=== PATIENT | female | born 1990 | race Two or more races ===

== ENCOUNTER 2017-03-31 16:33 | Emergency (ER) | payer OTHER ==
[~2017-03-31] VITALS: Ht 160 cm; Wt 87.5 kg
[2017-03-31 17:03] VITALS: BP 110/55
[2017-03-31] MEDS ORDERED: LIDOCAINE 2%/EPI 1:100,000 20 ML VIAL. ONE (17:55)
[2017-03-31] MEDS ORDERED: LIDOCAINE 2%/EPI 1:100,000 20 ML VIAL. IJ ONE (18:00)
--- NOTE | 2017-03-31 18:14 | PHYS DOC ---
General Chief Complaint: HEMORRHOIDS Stated Complaint: HEMORRHOIDS Time Seen by MD: 16:38 Source: patient Exam Limitations: no limitations Problems: History of Present Illness Initial Comments Patient is a 26-year-old female who comes to the ED complaining of rectal pain. Patient speaks Tuval[place] as a second language, her significant other does translate some information that she apparently cannot understand. Overall she has functional Tuvaluan speaking capacity. Patient states that for the past 5 days she's had worsening pain at the rectum. An annoyance initially, for the past 24 hours she says it's been severe and throbbing. Pain is worse with bowel movements and exertion, her last bowel movement was today described as normal. She relays a history of mild constipation but actually feels this condition is resultant from a [address] as they just relocated to this area from [place]. She denies blood in her stools fever chills sweats or myalgias and has no chronic medical issues other than mild chronic constipation. Timing/Duration: 1 week, getting worse Severity: severe Modifying Factors: worse with movement Associated Symptoms: other Past Medical History Medical History: other (constipation) Surgical History: other ( section) Social History Smoker: non-smoker Alcohol: none Drugs: none Review of Systems Constitutional: denies chills, denies diaphoresis, denies fever, denies malaise Respiratory: denies cough, denies shortness of breath Cardiovascular: denies chest pain, denies palpitations Gastrointestinal: see HPI, denies abdominal pain, denies diarrhea, denies nausea, denies vomiting Genitourinary: denies dysuria, denies frequency, denies hematuria Musculoskeletal: denies back pain, denies joint swelling, denies neck pain Psychiatric/Neurological: denies headache, denies numbness, denies paresthesia Physical Exam General Appearance: mild distress, obese Ear, Nose, Throat: hearing grossly normal, normal ENT inspection Neck: non-tender, supple Respiratory: normal breath sounds, no respiratory distress Gastrointestinal: non tender, soft Rectal: hemorrhoids (a 1.5 cm thrombosed hemorrhoid noted at the 6 o'clock position with exquisite tenderness to palpation there is no active bleeding. No evidence of erythema or other changes.) Back: no CVA tenderness, no vertebral tenderness Extremities: non-tender, normal inspection Neurologic/Psychiatric: rehabilitation physician II-XII nml as tested, no motor/sensory deficits, alert, oriented x 3 Skin: normal color, warm/dry Incision and Drainage Incision and Drainage : Site: thrombosed hemorrhoid at the anterior anus Blade Size: 11 I & D Procedure: betadine prep Progress Informed consent obtained, 2 mL of 2% lidocaine with epinephrine infused with adequate analgesia. An 11 blade used for 0.5 cm incision after which thrombosed and pooled blood expressed. Swelling reduced patient tolerated the procedure well there were no complications estimated blood loss minimal. Wound care instructions were discussed in detail see departure instructions. Departure Time of Disposition: 18:13 Disposition: 01 HOME, SELF-CARE Diagnosis: thrombosed external hemorrhoid Condition: IMPROVED Patient Instructions: Hemorrhoidectomy, Care After Additional Instructions: Rest, no strenuous activity. Hot sitz baths 15 minutes 3 times daily and after each bowel movement. High fiber (30 g per day) diet. 10-12 glasses of water daily. Onyw-esp-yytzqtm stool softeners to avoid constipation. No straining or heavy lifting no straining on the toilet until cleared by your doctor. [id number] ibuprofen for baseline discomfort. Wear a pad until bleeding resolves. Prescription: [facility] [place] 5 mg quantity 15 Follow-up with her doctor in 5-7 days for recheck. Return to the ED with new or changing symptoms. SUDARSHAN RODRIGUEZ DO Mar 31, 2017 18:14
[2017-03-31] MEDS ORDERED: HYDROcodone/APAP 5/325MG 1 TAB TABLET PO ONE (18:15)
[2017-03-31] MEDS ORDERED: HYDROcodone/APAP 5/325MG 1 TAB TABLET ONE (18:31)
== END 2017-03-31 18:35 | disposition home or self-care (01) ==
LOC: ER 16:33
DX: K64.5 Perianal venous thrombosis (principal); Z98.890 Other specified postprocedural states
CPT/HCPCS: 99284-25

== ENCOUNTER → 2017-05-11 | Outpatient (CLI) | payer OTHER ==
--- NOTE | 2017-05-11 14:16 | RAD ---
Renal ultrasound 05/11/2017 Clinical history: Right flank pain. Technique: A real-time ultrasound examination of both kidneys and the urinary bladder was performed. Multiple images were obtained. Findings: Both kidneys are within normal limits in size and echogenicity. The right kidney measures 11 cm in length. The left kidney measures 12.1 cm in length. No focal abnormality of either kidney is seen. There is no evidence of hydronephrosis. No renal calculus is noted. Increased echogenicity of the liver parenchyma is seen consistent with mild fatty infiltration. Images through the pelvis demonstrate the urinary bladder distended with urine. Echogenic debris is seen within the urinary bladder. Impression: 1. No abnormality of either kidney is seen. 2. Fatty infiltration of the liver. 3. Small amount of debris is seen within the urinary bladder.
== END | disposition home or self-care (01) ==
LOC: US 10:52
PROVIDERS: ATTEND Nurse Practitioner Family
DX: K76.0 Fatty (change of) liver, not elsewhere classified (principal)
CPT/HCPCS: 76770

== ENCOUNTER → 2017-05-24 | Outpatient (CLI) | payer OTHER ==
[2017-05-24 11:06] LABS: ALBUMIN 3.6 g/dL (3.4-5.0); DIRECT BILIRUBIN 0.1 mg/dL (0.0-0.2); TOTAL BILIRUBIN 0.3 mg/dL (0.2-1.0); TOTAL PROTEIN 7.7 g/dL (6.4-8.2)
--- NOTE | 2017-05-24 13:35 | RAD ---
Lumbar spine plain films Indication: Pain since childbirth 2 months ago Technique: 3 views of the lumbar spine Comparison: None Findings: The lumbar spine is in normal anatomic alignment. No vertebral body height loss or intervertebral disc space narrowing. No evidence of degenerative disc disease. Bilateral SI joints are within normal limits. Note made of IUD. Impression: Unremarkable lumbar spine plain films. MTDD
== END | disposition home or self-care (01) ==
LOC: DXRAD 10:02
PROVIDERS: ATTEND Nurse Practitioner Family
DX: M54.5 Low back pain (principal)
CPT/HCPCS: 36415; 72100; 80061; 80076

== ENCOUNTER 2017-05-31 11:15 | Emergency (ER) | payer OTHER ==
[2017-05-31 11:20] VITALS: BP 120/62
[2017-05-31] MEDS ORDERED: NALOXONE 0.4 MG/ML VIAL. IV ONE (11:45)
[2017-05-31 11:51] LABS: BASO % 0 % (0-3); EOS # 0.2 x10^3/uL (0.0-0.7); EOS % 2 % (0-3); HEMATOCRIT 41.7 % (36.0-47.0); HEMOGLOBIN 13.5 g/dL (12.0-15.5); LYMPH # 1.6 x10^3/uL (1.0-4.8); LYMPH % 16 % (24-48); MEAN CORPUSCULAR HEMOGLOBIN 28 pg (25-35); MEAN CORPUSCULAR HGB CONC 32 g/dL (31-37); MEAN CORPUSCULAR VOLUME 86 fL (79-100); MONO # 0.6 x10^3/uL (0.0-1.1); MONO % 6 % (0-9); NEUT # 7.7 x10^3uL (1.8-7.7); NEUT % 76 % (31-73); PLATELET COUNT 301 x10^3/uL (140-400); RED BLOOD COUNT 4.84 x10^6/uL (3.50-5.40); RED CELL DISTRIBUTION WIDTH 15.3 % (11.5-14.5); WHITE BLOOD COUNT 10.1 x10^3/uL (4.0-11.0)
[2017-05-31 12:03] LABS: ALBUMIN 3.7 g/dL (3.4-5.0); ALBUMIN/GLOBULIN RATIO 0.9 (1.0-1.7); CALCIUM 9.3 mg/dL (8.5-10.1); CREATININE 0.8 mg/dL (0.6-1.0); GFR 88.1; POTASSIUM 4.3 mmol/L (3.5-5.1); TOTAL BILIRUBIN 0.4 mg/dL (0.2-1.0)
[2017-05-31 12:04] LABS: ACETAMIN < 2.0 mcg/mL (10-30); ETHANOL < 10 mg/dL (0-10)
[2017-05-31 12:25] LABS: BARBITURATES NEG (NEG); BENZODIAZEPINES NEG (NEG); CANNABINOIDS NEG (NEG); COCAINE NEG (NEG); METHADONE NEG (NEG); OPIATES NEG (NEG); PHENCYCLIDINE NEG (NEG)
[2017-05-31 12:26] LABS: AMPHETAMINE/METHAMPHETAMINE NEG (NEG)
[2017-05-31] MEDS ORDERED: traMADol 50 MG TABLET PO ONE (12:30)
[2017-05-31] MEDS ORDERED: KETOROLAC 30 MG/ML VIAL. IV ONE (12:30)
--- NOTE | 2017-05-31 17:23 | ED.ADGEN ---
Past History Past Medical History: Constipation Past Surgical History: , Other Alcohol Use: None Additional Alcohol Information: UNKNOWN Drug Use: None Adult General Chief Complaint Chief Complaint Altered mental status, drug overdose HPI HPI Patient is a 26-year-old female who presents with acute drug overdose. Patient took #3, 5/325 mg Percocets 2 hours prior to ED arrival. Patient family members state patient became unresponsive brought patient in by private vehicle. No report of apnea or loss of pulse. On ED arrival, patient has pinpoint pupils in the car is unresponsive his breathing and has good pulse. Patient brought into treatment room immediately. An IV was established and the patient was given Narcan. Upon regaining consciousness, patient states she underwent an anal fistula surgery [address] Starkey at [facility] and took more pain medication more than prescribed due to poorly controlled pain. Patient denies any other coingestants, drugs or alcohol. Patient has follow-up appointment with Dr. Starkey in 2 weeks Review of Systems Review of Systems ROS as per HPI. Current Medications Current Medications Current Medications Medications (Trade) Dose Ordered Sig/Terence Start Time Stop Time Status Last Admin Dose Admin Ketorolac Tromethamine (Toradol) 30 mg 1X ONCE 05/31/17 12:30 05/31/17 12:31 DC 05/31/17 12:39 30 MG Naloxone HCl (Narcan) 0.4 mg 1X ONCE 05/31/17 11:45 05/31/17 11:46 DC 05/31/17 11:46 0.4 MG Tramadol HCl (Ultram) 100 mg 1X ONCE 05/31/17 12:30 05/31/17 12:31 DC 05/31/17 12:37 100 MG Allergies Allergies Allergies Coded Allergies Type Severity Reaction Last Updated Verified No Known Drug Allergies 05/31/17 No Physical Exam Physical Exam Constitutional: Unresponsive. [] HENT: Normocephalic, atraumatic, bilateral external ears normal, nose normal. [] Eyes: PERRLA, EOMI, conjunctiva normal, no discharge. [] Neck: Normal range of motion, no tenderness, supple, no stridor. [] Cardiovascular:Heart rate regular rhythm, no murmur. [] Lungs & Thorax: Bilateral breath sounds clear to auscultation [] Abdomen: Bowel sounds normal, soft, no tenderness.[] Skin: Warm, dry, no erythema, no rash. [] Back: No tenderness. [] Extremities: No tenderness. [] Current Patient Data Vital Signs Vital Signs Date Time Temp Pulse Resp B/P (MAP) Pulse Ox O2 Delivery O2 Flow Rate FiO2 05/31/17 12:37 16 05/31/17 11:20 98.1 66 98 Room Air Lab Results Laboratory Tests Test 05/31/17 11:35 05/31/17 11:59 White Blood Count 10.1 x10^3/uL (4.0-11.0) Red Blood Count 4.84 x10^6/uL (3.50-5.40) Hemoglobin 13.5 g/dL (12.0-15.5) Hematocrit 41.7 % (36.0-47.0) Mean Corpuscular Volume 86 fL (79-100) Mean Corpuscular Hemoglobin 28 pg (25-35) Mean Corpuscular Hemoglobin Concent 32 g/dL (31-37) Red Cell Distribution Width 15.3 % (11.5-14.5) H Platelet Count 301 x10^3/uL (140-400) Neutrophils (%) (Auto) 76 % (31-73) H Lymphocytes (%) (Auto) 16 % (24-48) L Monocytes (%) (Auto) 6 % (0-9) Eosinophils (%) (Auto) 2 % (0-3) Basophils (%) (Auto) 0 % (0-3) Neutrophils # (Auto) 7.7 x10^3uL (1.8-7.7) Lymphocytes # (Auto) 1.6 x10^3/uL (1.0-4.8) Monocytes # (Auto) 0.6 x10^3/uL (0.0-1.1) Eosinophils # (Auto) 0.2 x10^3/uL (0.0-0.7) Basophils # (Auto) 0.0 x10^3/uL (0.0-0.2) Sodium Level 139 mmol/L (136-145) Potassium Level 4.3 mmol/L (3.5-5.1) Chloride Level 104 mmol/L (98-107) Carbon Dioxide Level 25 mmol/L (21-32) Anion Gap 10 (6-14) Blood Urea Nitrogen 10 mg/dL (7-20) Creatinine 0.8 mg/dL (0.6-1.0) Estimated GFR (Cockcroft-Gault) 88.1 BUN/Creatinine Ratio 13 (6-20) Glucose Level 118 mg/dL (70-99) H Calcium Level 9.3 mg/dL (8.5-10.1) Total Bilirubin 0.4 mg/dL (0.2-1.0) Aspartate Amino Transferase (AST) 21 U/L (15-37) Alanine Aminotransferase (ALT) 34 U/L (14-59) Alkaline Phosphatase 106 U/L (46-116) Total Protein 8.0 g/dL (6.4-8.2) Albumin 3.7 g/dL (3.4-5.0) Albumin/Globulin Ratio 0.9 (1.0-1.7) L Acetaminophen Level < 2.0 mcg/mL (10-30) L Acetaminophen Last Dose Date 05/31/17 Acetaminophen Last Dose Time 0800 Ethyl Alcohol Level < 10 mg/dL (0-10) Urine Opiates Screen Neg (NEG) Urine Methadone Screen Neg (NEG) Urine Barbiturates Neg (NEG) Urine Phencyclidine Screen Neg (NEG) Urine Amphetamine/Methamphetamine Neg (NEG) Urine Benzodiazepines Screen Neg (NEG) Urine Cocaine Screen Neg (NEG) Urine Cannabinoids Screen Neg (NEG) Urine Ethyl Alcohol Neg (NEG) EKG EKG [] Radiology/Procedures Radiology/Procedures [] Course & Med Decision Making Course & Med Decision Making Pertinent Labs and Imaging studies reviewed. (See chart for details) [Patient given single dose of Narcan with immediate regain of consciousness. Patient history is pearly controlled pain did not intentionally overdose. On exam, the patient has a healing anal fistulotomy with serous drainage but without evidence of infection which is the cause of the patient's paint. She denies fever, abdominal pain, or bleeding. Tramadol and toradol given for pain relief in the ED. Case reviewed with Dr. Hatfield who recommended early follow up with Dr. Starkey. Patent admonished to take pain medication as prescribed. A prescription for tramadol was provided for breakthrough pain as needed. Patient verbalizes understanding agreement with discharge plan. ] Final Impression Final Impression [1. Accidental drug overdose 2. Post-operative pain Problems: Dragon Disclaimer Dragon Disclaimer This electronic medical record was generated, in whole or in part, using a voice recognition dictation system. RITA SAUER DO May 31, 2017 17:23
== END 2017-05-31 12:50 | disposition home or self-care (01) ==
LOC: ER 11:15
DX: T50.991A Poisoning by other drugs, medicaments and biological substances, accidental (unintentional), initial encounter (principal); G89.18 Other acute postprocedural pain; Y92.89 Other specified places as the place of occurrence of the external cause
CPT/HCPCS: 36415; 80053; 80307; 85025; 96374; 96375; 99284; G0480; J1885; J2310; G0479

== ENCOUNTER 2018-11-09 12:30 | Emergency (ER) | payer OTHER ==
[2018-11-09 12:46] VITALS: BP 122/68
[2018-11-09] MEDS ORDERED: KETOROLAC 60 MG/2 ML VIAL. IM ONE ×2 (12:49→13:15)
--- NOTE | 2018-11-09 13:19 | RAD ---
PQRS Compliance statement: One or more of the following individualized dose reduction techniques were utilized for this examination: 1. Automated exposure control. 2. Adjustment of the mA and/or kV according to patient size. 3. Use of iterative reconstruction technique. Indication:FALL TODAY TECHNIQUE: CT head without IV contrast COMPARISON:None FINDINGS: No pathologic extra-axial or intra-axial fluid collection. The ventricles and basal cisterns are within normal limits. No acute intracranial bleed. No focal loss of santos-white sensation. Orbits are within normal limits. No large scalp hematoma. No acute calvarial fracture. Visualized paranasal sinuses and mastoid air cells are clear. IMPRESSION: No acute intracranial process. Indication:FALL TODAY TECHNIQUE: CT of the cervical spine without IV contrast with multiplanar reformats. COMPARISON:None FINDINGS: Cervical spine is in normal anatomic alignment. Atlantoaxial joint interval is preserved. No compression deformity. Facet joints are in normal anatomic alignment. No acute fractures. Noncontrast appearance of the neck soft tissue is within normal limits. Clear lung apices. IMPRESSION: No acute cervical spine fracture. Electronically signed by: Jordan Benz DO (11/09/2018 1:14 PM) [id number]
--- NOTE | 2018-11-09 13:25 | RAD ---
Three-view lumbar spine and three-view sacrum HISTORY: Patient fell today COMPARISON: Prior lumbar spine of May 24, 2017 images are available but no report. Three-view lumbar spine Vertebral body height, disc spaces and alignment appear intact. No bone destruction identified. Small pelvic calcifications likely phleboliths. 3 view sacrum No evidence of acute fracture. No bone destruction. The sacroiliac joints appear to be intact. IMPRESSION: No evidence of acute graphic abnormality. Electronically signed by: Siva Mcclendon MD (11/09/2018 1:21 PM) [facility]
--- NOTE | 2018-11-09 13:25 | RAD ---
Three-view lumbar spine and three-view sacrum HISTORY: Patient fell today COMPARISON: Prior lumbar spine of May 24, 2017 images are available but no report. Three-view lumbar spine Vertebral body height, disc spaces and alignment appear intact. No bone destruction identified. Small pelvic calcifications likely phleboliths. 3 view sacrum No evidence of acute fracture. No bone destruction. The sacroiliac joints appear to be intact. IMPRESSION: No evidence of acute graphic abnormality. Electronically signed by: Siva Mcclendon MD (11/09/2018 1:21 PM) [facility]
[2018-11-09] MEDS ORDERED: NAPR-683 PO (14:07)
[2018-11-09] MEDS ORDERED: CYCL-331 PO (14:07)
--- NOTE | 2018-11-09 14:07 | PHYS DOC ---
Past History Past Medical History: No Pertinent History Past Surgical History: Other Alcohol Use: None Drug Use: None Adult General Chief Complaint Chief Complaint: MECHANICAL FALL HPI HPI Patient is a 28 year old female who brought in by EMS because of a fall at parking lot and complaining of pain in her head and lower back. Patient states she is slipped on ice and had a fall. Patient denies loss of consciousness or focal neuro deficit, nausea and vomiting, . Patient rated her pain 10 over 10. Patient had c-collar placed by EMS. Review of Systems Review of Systems Constitutional: Denies fever or chills [] Eyes: Denies change in visual acuity, redness, or eye pain [] HENT: Denies nasal congestion or sore throat [] Respiratory: Denies cough or shortness of breath [] Cardiovascular: No additional information not addressed in HPI [] GI: Denies abdominal pain, nausea, vomiting, bloody stools or diarrhea [] : Denies dysuria or hematuria [] Musculoskeletal: Reports back pain Integument: Denies rash or skin lesions [] Neurologic: Reports headache, denies focal weakness or sensory changes [] Endocrine: Denies polyuria or polydipsia [] All other systems were reviewed and found to be within normal limits, except as documented in this note. Current Medications Current Medications Current Medications Medications (Trade) Dose Ordered Sig/[facility] Start Time Stop Time Status Last Admin Dose Admin Ketorolac Tromethamine (Toradol Im) 60 mg 1X ONCE 11/09/18 13:15 11/09/18 13:16 DC 11/09/18 13:06 60 MG Allergies Allergies Allergies Coded Allergies Type Severity Reaction Last Updated Verified No Known Drug Allergies 05/31/17 No Physical Exam Physical Exam Constitutional: Well developed, well nourished, mild acute distress, non-toxic appearance. [] HENT: Normocephalic, atraumatic Eyes: PERRLA, EOMI, conjunctiva normal, no discharge. [] Neck: Immobilized by c-collar Cardiovascular:Heart rate regular rhythm, no murmur [] Lungs & Thorax: Bilateral breath sounds clear to auscultation [] Abdomen: Bowel sounds normal, soft, no tenderness, no masses, no pulsatile masses. [] Skin: Warm, dry, no erythema, no rash. [] Back: No tenderness, no CVA tenderness. [] Extremities: No tenderness, no cyanosis, no clubbing, ROM intact, no edema. [] Neurologic: Alert and oriented X 3, normal motor function, normal sensory function, no focal deficits noted. [] Psychologic: Affect anxious, judgement normal, mood normal. [] Current Patient Data Vital Signs Vital Signs Date Time Temp Pulse Resp B/P (MAP) Pulse Ox O2 Delivery O2 Flow Rate FiO2 11/09/18 12:46 98.1 65 18 98 Room Air EKG EKG [] Radiology/Procedures Radiology/Procedures [address] [id number] IMAGING REPORT Signed PATIENT: PENELOPE NEAL V ACCOUNT: [id number] : 1990 LOCATION: ER AGE: 28 SEX: F EXAM STATUS: REG ER ORD. PHYSICIAN: ERIK NOLAN MD REASON: fall PROCEDURE: CT HEAD AND CERVICAL SPINE WO RS Compliance statement: One or more of the following individualized dose reduction techniques were utilized for this examination: 1. Automated exposure control. 2. Adjustment of the mA and/or kV according to patient size. 3. Use of iterative reconstruction technique. Indication:FALL TODAY TECHNIQUE: CT head without IV contrast COMPARISON:None FINDINGS: No pathologic extra-axial or intra-axial fluid collection. The ventricles and basal cisterns are within normal limits. No acute intracranial bleed. No focal loss of santos-white sensation. Orbits are within normal limits. No large scalp hematoma. No acute calvarial fracture. Visualized paranasal sinuses and mastoid air cells are clear. IMPRESSION: No acute intracranial process. Indication:FALL TODAY TECHNIQUE: CT of the cervical spine without IV contrast with multiplanar reformats. COMPARISON:None FINDINGS: Cervical spine is in normal anatomic alignment. Atlantoaxial joint interval is preserved. No compression deformity. Facet joints are in normal anatomic alignment. No acute fractures. Noncontrast appearance of the neck soft tissue is within normal limits. Clear lung apices. IMPRESSION: No acute cervical spine fracture. Electronically signed by: Jordan Benz DO (11/09/2018 1:14 PM) [id number] DICTATED AND SIGNED BY: JORDAN BENZ DO DATE: 11/09/18 1310 CC: SIMBA EMANUEL APRN; ERIK NOLAN MD ~ [address] [id number] IMAGING REPORT Signed PATIENT: PENELOPE NEAL V ACCOUNT: [id number] : 1990 LOCATION: ER AGE: 28 SEX: F EXAM STATUS: REG ER ORD. PHYSICIAN: ERIK NOLAN MD REASON: fall PROCEDURE: LUMBAR SPINE 2-3V Three-view lumbar spine and three-view sacrum HISTORY: Patient fell today COMPARISON: Prior lumbar spine of May 24, 2017 images are available but no report. Three-view lumbar spine Vertebral body height, disc spaces and alignment appear intact. No bone destruction identified. Small pelvic calcifications likely phleboliths. 3 view sacrum No evidence of acute fracture. No bone destruction. The sacroiliac joints appear to be intact. IMPRESSION: No evidence of acute graphic abnormality. Electronically signed by: Siva Mcclendon MD (11/09/2018 1:21 PM) [facility] DICTATED AND SIGNED BY: SIVA MCCLENDON MD DATE: 11/09/18 [id number] CC: SIMBA EMANUEL APRN; ERIK NOLAN MD ~ [address] [address] IMAGING REPORT Signed PATIENT: PENELOPE NEAL V ACCOUNT: [id number] : 1990 LOCATION: ER AGE: 28 SEX: F EXAM STATUS: REG ER ORD. PHYSICIAN: ERIK NOLAN MD REASON: fall PROCEDURE: SACRUM & COCCYX 3V Three-view lumbar spine and three-view sacrum HISTORY: Patient fell today COMPARISON: Prior lumbar spine of May 24, 2017 images are available but no report. Three-view lumbar spine Vertebral body height, disc spaces and alignment appear intact. No bone destruction identified. Small pelvic calcifications likely phleboliths. 3 view sacrum No evidence of acute fracture. No bone destruction. The sacroiliac joints appear to be intact. IMPRESSION: No evidence of acute graphic abnormality. Electronically signed by: Siva Mcclendon MD (11/09/2018 1:21 PM) [facility] DICTATED AND SIGNED BY: SIVA MCCLENDON MD DATE: 11/09/18 6075 CC: SIMBA EMANUEL APRN; ERIK NOLAN MD ~ Course & Med Decision Making Course & Med Decision Making Pertinent Imaging studies reviewed. (See chart for details) Evaluation of patient in ER showed 28-year-old female patient in by ambulance because of a fall and injury to her back. Patient was very anxious. Patient treated with Toradol and felt better. CT head and cervical spine and lumbar and sacral and coccyx x-ray was unremarkable. Patient ambulated without problem. Plan discharge patient home with diagnosis of fall and lumbosacral strain. Dragon Disclaimer Dragon Disclaimer This electronic medical record was generated, in whole or in part, using a voice recognition dictation system. Departure Departure: Impression: Primary Impression: Acute lumbosacral myofascial strain Additional Impressions: Head injury Fall from slipping on ice Disposition: 01 HOME, SELF-CARE (at 1403) Condition: IMPROVED Referrals: SIMBA EMANUEL APRN (PCP) Patient Instructions: Head Injury, Adult, Lumbosacral Strain Additional Instructions: Drink plenty of liquids Follow-up with your primary care physician in 3-5 days Return to ER if not getting better Apply ice on the affected area Scripts Naproxen (NAPROSYN) 500 Mg Tablet 500 MG PO BID for pain, #20 TAB Prov: ERIK NOLAN MD 11/09/18 Cyclobenzaprine Hcl (CYCLOBENZAPRINE HCL) 10 Mg Tablet 1 TAB PO TID for pain, #20 TAB Prov: ERIK NOLAN MD 11/09/18 Problem Qualifiers ERIK NOLAN MD Nov 09, 2018 14:07
== END 2018-11-09 14:10 | disposition home or self-care (01) ==
LOC: ER 12:30
DX: S39.012A Strain of muscle, fascia and tendon of lower back, initial encounter (principal); S09.90XA Unspecified injury of head, initial encounter; W00.0XXA Fall on same level due to ice and snow, initial encounter; Y93.89 Activity, other specified; Y92.481 Parking lot as the place of occurrence of the external cause; Y99.8 Other external cause status
CPT/HCPCS: 70450; 72100; 72125; 72220; 96372; 99284; J1885

== ENCOUNTER 2018-11-24 19:01 | Emergency (ER) | payer OTHER ==
[~2018-11-24] VITALS: Ht 160 cm; Wt 94.9 kg
[~2018-11-24 19:01] MED LIST: CYCL-331 PO; NAPR-683 PO
--- NOTE | 2018-11-24 19:11 | ED.ADGEN ---
Past History Past Medical History: No Pertinent History, Bronchitis Past Surgical History: Other Alcohol Use: None Drug Use: None Adult General Chief Complaint Chief Complaint ".. I fell on my tailbone yesterday.. I slipped on the ice....and it still hurts to move... or go to bathroom.. and I ve probably got what my got... virus.. and bronchitis.. they ended up putting him on breathing thing and antibiotics. " HPI HPI Patient is a 28 year old female dependent from [place] who presents with above hx and complaints of fall with tailbone injury, bronchitis, non- productive cough, fever, chills, pharyngitis, malaise, arthralgia and myalgia. Hx. of prior surgical repair of cysts at base of spine. She denies any problems with defecation or urination. Patient has been ambulatory. Injury initially occurred approximately 2 days ago. Has been exposed to her recently has a upper respiratory infection and a diagnosis of pneumonia and isn' t currently on a course of antibiotics. No recent travel. Patient normally healthy. Review of Systems Review of Systems Constitutional: Denies fever or chills [] Eyes: Denies change in visual acuity, redness, or eye pain [] HENT: Complaints of nasal congestion and sore throat [] Respiratory: Complains of cough and wheezing Cardiovascular: No additional information not addressed in HPI [] GI: Denies abdominal pain, nausea, vomiting, bloody stools or diarrhea [] : Denies dysuria or hematuria [] Musculoskeletal: Complaints of tailbone pain after fall Integument: Denies rash or skin lesions [] Neurologic: Denies headache, focal weakness or sensory changes [] Endocrine: Denies polyuria or polydipsia [] All other systems were reviewed and found to be within normal limits, except as documented in this note. Family History Family History Noncontributory Current Medications Current Medications Current Medications Medications (Trade) Dose Ordered Sig/Terence Start Time Stop Time Status Last Admin Dose Admin Albuterol Sulfate (Ventolin Hfa Inhaler) 2 puff 1X ONCE 11/24/18 19:30 11/24/18 19:31 DC 11/24/18 19:54 2 PUFF Azithromycin (Zithromax) 500 mg 1X ONCE 11/24/18 19:30 2/21/19 19:31 DC 11/24/18 19:53 500 MG Prednisone (Prednisone) 50 mg 1X ONCE 11/24/18 19:30 11/24/18 19:31 DC 11/24/18 19:53 50 MG Allergies Allergies Allergies Coded Allergies Type Severity Reaction Last Updated Verified No Known Drug Allergies 05/31/17 No Physical Exam Physical Exam Constitutional: Moderately acute distress, non-toxic appearance. [] HENT: Normocephalic, atraumatic, bilateral external ears TMs have fluid behind TMs, no marked erythema,, oropharynx moist,nasal drainage and injected pharynx, no oral exudates, nose swollen turbinates and clear rhinorrhea. Eyes: PERRLA, EOMI, conjunctiva normal, no discharge. [] Neck: Normal range of motion, no tenderness, supple, no stridor. [] Cardiovascular:Heart rate regular rhythm, no murmur [] Lungs & Thorax: Bilateral breath sounds equal apex with scattered wheezing on auscultation [] Abdomen: Bowel sounds normal, soft, no tenderness, no masses, no pulsatile masses. Obese. Patient does have old surgical repair in the upper sacral area midline. Rectal exam shows no protrusion of tailbone into the rectal cavity. No pain at the tip of tailbone. Pain appears to be localized higher then the protruding tailbone area. No loss detected. Skin: Warm, dry, no erythema, no rash. [] Back: No tenderness, no CVA tenderness. [] Extremities: No tenderness, no cyanosis, no clubbing, ROM intact, no edema. [] Neurologic: Alert and oriented X 3, normal motor function, normal sensory function, no focal deficits noted. [] Psychologic: Affect inches, judgement normal, mood normal. [] Current Patient Data Vital Signs Vital Signs Date Time Temp Pulse Resp B/P (MAP) Pulse Ox O2 Delivery O2 Flow Rate FiO2 11/24/18 21:02 85 18 110/56 (74) 99 Room Air 11/24/18 19:29 98.3 Lab Results Laboratory Tests Test 11/24/18 19:20 11/24/18 19:43 Urine Collection Type Unknown Urine Color Yellow Urine Clarity Clear Urine pH 5.5 Urine Specific [place] 1.020 Urine Protein Neg (NEG-TRACE) Urine Glucose (UA) Neg mg/dL (NEG) Urine Ketones (Stick) Neg mg/dL (NEG) Urine Blood Trace (NEG) Urine Nitrite Neg (NEG) Urine Bilirubin Neg (NEG) Urine Urobilinogen Dipstick 0.2 mg/dL (0.2 mg/dL) Urine Leukocyte Esterase Neg (NEG) Urine RBC Rare /HPF (0-2) Urine WBC 1-4 /HPF (0-4) Urine Squamous Epithelial Cells Mod /LPF Urine Bacteria Few /HPF (0-FEW) Urine Opiates Screen Neg (NEG) Urine Methadone Screen Neg (NEG) Urine Barbiturates Neg (NEG) Urine Phencyclidine Screen Neg (NEG) Urine Amphetamine/Methamphetamine Neg (NEG) Urine Benzodiazepines Screen Neg (NEG) Urine Cocaine Screen Neg (NEG) Urine Cannabinoids Screen Neg (NEG) Urine Ethyl Alcohol Neg (NEG) Influenza Type A (Rapid) Negative (NEGATIVE) Influenza Type B (Rapid) Negative (NEGATIVE) Group A Streptococcus Rapid Negative (NEGATIVE) POC Urine HCG, Qualitative hcg negative (Negative) EKG EKG [] Radiology/Procedures Radiology/Procedures My interpretation of pelvic film shows no obvious fracture dislocation.[] Course & Med Decision Making Course & Med Decision Making Pertinent Labs and Imaging studies reviewed. (See chart for details). Patient use ice packs as needed for the next several days. Patient to keep stool soft. Patient take Tylenol and ibuprofen for discomfort. Patient take his Zithromax 250 mg daily for 5 days. Patient take prednisone 50 mg daily for 5 days. Patient uses MDI 2 puffs 4 times a day. Patient follow-up primary care. Patient return if any concerns. [] Final Impression Final Impression 1. Bronchitis 2. Fall- Tail bone contusion[] 3. Upper respiratory infection Dragon Disclaimer Dragon Disclaimer This electronic medical record was generated, in whole or in part, using a voice recognition dictation system. Dragon Disclaimer This chart was dictated in whole or in part using Voice Recognition software in a busy, high-work load, and often noisy Emergency Department environment. It may contain unintended and wholly unrecognized errors or omissions. Discharge Summary Visit Information Final Diagnosis Problems Medical Problems: (1) Bronchitis Status: Acute (2) Fall Status: Acute Brief Hospital Course Allergies Allergies Coded Allergies Type Severity Reaction Last Updated Verified No Known Drug Allergies 05/31/17 No Vital Signs Vital Signs Date Time Temp Pulse Resp B/P (MAP) Pulse Ox O2 Delivery O2 Flow Rate FiO2 11/24/18 21:02 85 18 110/56 (74) 99 Room Air 11/24/18 19:29 98.3 Lab Results Laboratory Tests Test 11/24/18 19:20 11/24/18 19:43 Urine Collection Type Unknown Urine Color Yellow Urine Clarity Clear Urine pH 5.5 Urine Specific [place] 1.020 Urine Protein Neg (NEG-TRACE) Urine Glucose (UA) Neg mg/dL (NEG) Urine Ketones (Stick) Neg mg/dL (NEG) Urine Blood Trace (NEG) Urine Nitrite Neg (NEG) Urine Bilirubin Neg (NEG) Urine Urobilinogen Dipstick 0.2 mg/dL (0.2 mg/dL) Urine Leukocyte Esterase Neg (NEG) Urine RBC Rare /HPF (0-2) Urine WBC 1-4 /HPF (0-4) Urine Squamous Epithelial Cells Mod /LPF Urine Bacteria Few /HPF (0-FEW) Urine Opiates Screen Neg (NEG) Urine Methadone Screen Neg (NEG) Urine Barbiturates Neg (NEG) Urine Phencyclidine Screen Neg (NEG) Urine Amphetamine/Methamphetamine Neg (NEG) Urine Benzodiazepines Screen Neg (NEG) Urine Cocaine Screen Neg (NEG) Urine Cannabinoids Screen Neg (NEG) Urine Ethyl Alcohol Neg (NEG) Influenza Type A (Rapid) Negative (NEGATIVE) Influenza Type B (Rapid) Negative (NEGATIVE) Group A Streptococcus Rapid Negative (NEGATIVE) Bedside Urine HCG, Qualitative hcg negative (Negative) Brief Hospital Course Ms. Villa is a 28 old female who presented with upper respiratory infection, bronchitis, and tailbone contusion. Discharge Information Condition at Discharge: Improved, Stable Disposition/Orders: D/C to Home Dischare Medications Current Medications Prednisone (Prednisone) 50 mg 1X ONCE PO Last administered on 11/24/18at 19:53 ; Admin Dose 50 MG; Start 11/24/18 at 19:30; Stop 11/24/18 at 19:31; Status DC Albuterol Sulfate (Ventolin Hfa Inhaler) 2 puff 1X ONCE INH Last administered on 11/24/18at 19:54; Admin Dose 2 PUFF; Start 11/24/18 at 19:30; Stop 11/24/18 at 19:31; Status DC Azithromycin (Zithromax) 500 mg 1X ONCE PO Last administered on 11/24/18at 19: 53; Admin Dose 500 MG; Start 11/24/18 at 19:30; Stop 11/24/18 at 19:31; Status DC Active Scripts Active Benadryl (Diphenhydramine Hcl) 25 Mg Capsule 50 Mg PO QIDPRN PRN Milk Of Magnesia (Magnesium Hydroxide) 2,400 Mg/10 Ml Oral.susp 2,400 Mg PO DAILY IF TAKING PAIN Acetaminophen 500 Mg Tablet 1,000 Mg PO QIDPRN PRN Hydrocodone-Ibuprofen 7.5-200 (Hydrocodone/Ibuprofen) 1 Each Tablet 1 Tab PO PRN Q6HRS PRN Zithromax (Azithromycin) 250 Mg Tablet 250 Mg PO DAILY 5 Days Prednisone 50 Mg Tablet 50 Mg PO DAILY 5 Days Naprosyn (Naproxen) 500 Mg Tablet 500 Mg PO BID Cyclobenzaprine Hcl 10 Mg Tablet 1 Tab PO TID DEXTER MEZA MD Nov 24, 2018 19:11
[2018-11-24] MEDS ORDERED: ALBUTEROL SULFATE 8GM INHALER. INH ONE (19:30)
[2018-11-24] MEDS ORDERED: predniSONE 10 MG TABLET PO ONE (19:30)
[2018-11-24] MEDS ORDERED: AZITHROMYCIN 250 MG TABLET. PO ONE (19:30)
[2018-11-24] MEDS ORDERED: ACET500T68 PO (19:31)
[2018-11-24] MEDS ORDERED: MAGN2400 PO (19:31)
[2018-11-24] MEDS ORDERED: PRED50TA PO (19:31)
[2018-11-24] MEDS ORDERED: AZIT250T PO (19:31)
[2018-11-24] MEDS ORDERED: HYDR-1179 PO (19:31)
[2018-11-24] MEDS ORDERED: DIPH25CA58 PO (19:32)
[2018-11-24 20:15] LABS: AMPHETAMINE/METHAMPHETAMINE NEG (NEG); BARBITURATES NEG (NEG); BENZODIAZEPINES NEG (NEG); CANNABINOIDS NEG (NEG); COCAINE NEG (NEG); METHADONE NEG (NEG); OPIATES NEG (NEG); PHENCYCLIDINE NEG (NEG)
[2018-11-24 20:16] LABS: INFLUENZA A PATIENT NEGATIVE (NEGATIVE); INFLUENZA B PATIENT NEGATIVE (NEGATIVE)
[2018-11-24 20:17] LABS: BACTERIA,URINE FEW /HPF (0-FEW); BILIRUBIN,URINE NEG (NEG); CLARITY,URINE CLEAR; COLOR,URINE YELLOW; GLUCOSE,URINE NEG (NEG); NITRITE,URINE NEG (NEG); RBC,URINE RARE /HPF (0-2); SQUAMOUS EPITHELIAL CELL,UR MOD /LPF; UROBILINOGEN,URINE 0.2 mg/dL (0.2 mg/dL)
[2018-11-24 21:02] VITALS: BP 110/56
--- NOTE | 2018-11-24 22:59 | RAD ---
PELVIS History: fell on tailbone, pain Comparison: Sacrum coccyx radiographs 11/09/2018 Findings: AP view of the pelvis is submitted. Sacral arcuate lines and sacroiliac joints are maintained. No acute osseous abnormality is identified. Impression: 1. No acute osseous abnormality is identified by radiograph. Electronically signed by: Yang Rdz MD (11/24/2018 10:55 PM) [id number]
== END 2018-11-24 21:04 | disposition home or self-care (01) ==
LOC: ER 19:01
DX: S30.0XXA Contusion of lower back and pelvis, initial encounter (principal); J06.9 Acute upper respiratory infection, unspecified; J40 Bronchitis, not specified as acute or chronic; W00.0XXA Fall on same level due to ice and snow, initial encounter; Y93.89 Activity, other specified; Y92.89 Other specified places as the place of occurrence of the external cause; Y99.8 Other external cause status
CPT/HCPCS: 36415; 72170; 80307; 81001; 81025; 87070; 87804; 87880; 94640; 99284; J0456; J7512; J7613

== ENCOUNTER 2019-04-30 22:38 | Emergency (ER) | payer OTHER ==
[~2019-04-30] VITALS: Ht 160 cm; Wt 94.9 kg
[~2019-04-30 22:38] MED LIST changes: +ACET500T68 PO; +AZIT250T PO; +DIPH25CA58 PO; +HYDR-1179 PO; +MAGN2400 PO; +PRED50TA PO
--- NOTE | 2019-04-30 22:43 | ED.ADGEN ---
Past History Past Medical History: No Pertinent History, Bronchitis Past Surgical History: No Surgical History Alcohol Use: None Drug Use: None Adult General Chief Complaint Chief Complaint ".. I have severe pain.. here... upper Rt and epigastric.. into my chest. ..".. " Everything started after eating hot dogs, hamburgers.. and several mixed drinks [place].. ".. " About 1 pm.. yesterday.. .its just never gone away...". :" it hurts clear up into my throat..." HPI HPI Patient is a 28 year old female who presents with above hx and complaints right upper quadrant and epigastric abdomen pain. Patient also having sternal pain and neck pain. Patient describing reflux into her throat. Patient states symptoms started after picnic at the [employer] yesterday and eating hot dogs and hamburgers with mixed drinks. Pain has never resolved. Patient denies any prior history of gallbladder disease. No history of cardiac problems. No history of black or tarry stools. No history of bad food. No history of travel. Denies immunosuppression. There is no family history called for colitis . Strong family hx for gallbladder disease , mother at age 20, sister at age 30. . Patient normally healthy. No history of blood clots or coagulopathy with family members or herself. There is some radiation of pain to right shoulder and back. No history of trauma. Pt. has been Gavid 1, Term 1 by C section. Has had problems with adenopathy, cellulitis and abscesses in axillary and groin ( hidradenitis suppurative) Review of Systems Review of Systems Constitutional: Denies fever or chills [] Eyes: Denies change in visual acuity, redness, or eye pain [] HENT: Denies nasal congestion or sore throat [] Respiratory: Denies cough or shortness of breath [] Cardiovascular: No additional information not addressed in HPI [] GI: Denies abdominal pain, nausea, vomiting, bloody stools or diarrhea [] : Denies dysuria or hematuria [] Musculoskeletal: Denies back pain or joint pain [] Integument: Denies rash or skin lesions [] Neurologic: Denies headache, focal weakness or sensory changes [] Endocrine: Denies polyuria or polydipsia [] All other systems were reviewed and found to be within normal limits, except as documented in this note. Family History Family History Mother issues of cardiac problems age 60, diabetes. Gallstones with family-, sister and mother at her age. Current Medications Current Medications Current Medications Medications (Trade) Dose Ordered Sig/Terence Start Time Stop Time Status Last Admin Dose Admin Acetaminophen (Tylenol) 1,000 mg 1X ONCE 05/01/19 02:30 05/01/19 02:31 UNV 05/01/19 02:38 1,000 MG Aspirin (Children'S Aspirin) 324 mg 1X ONCE 04/30/19 23:00 04/30/19 23:01 DC 04/30/19 23:10 324 MG Ceftriaxone Sodium 1 gm/ Sodium Chloride 50 ml @ 100 mls/hr 1X ONCE 05/01/19 02:30 05/01/19 02:59 UNV 05/01/19 02:38 100 MLS/HR Ceftriaxone Sodium (Rocephin) 1 gm STK-MED ONCE 05/01/19 02:32 05/01/19 02:33 DC Info (Do NOT chart on this entry -- for MONITORING) 1 each PRN DAILY PRN 04/30/19 23:55 05/02/19 23:54 Iohexol (Omnipaque 240 Mg/ml) 30 ml 1X ONCE 04/30/19 23:55 04/30/19 23:56 DC 05/01/19 01:33 30 ML Iohexol (Omnipaque 300 Mg/ml) 75 ml 1X ONCE 04/30/19 23:55 04/30/19 23:56 DC 05/01/19 01:34 75 ML Ketorolac Tromethamine (Toradol 30mg Vial) 30 mg 1X ONCE 05/01/19 02:30 05/01/19 02:31 UNV 05/01/19 02:38 30 MG Lactated Ringer's 1,000 ml @ 1,000 mls/hr Q1H 04/30/19 23:00 04/30/19 23:59 DC 04/30/19 23:11 1,000 MLS/HR Magnesium Hydroxide (Milk Of Magnesia) 2,400 mg 1X ONCE 04/30/19 23:15 04/30/19 23:48 DC 04/30/19 23:10 2,400 MG Sodium Chloride 50 ml @ As Directed STK-MED ONCE 05/01/19 02:34 05/01/19 02:35 DC Sucralfate (Carafate) 1 gm 1X ONCE 05/01/19 02:30 05/01/19 02:31 UNV 05/01/19 02:38 1 GM See nursing for home meds Allergies Allergies Allergies Coded Allergies Type Severity Reaction Last Updated Verified No Known Drug Allergies 05/31/17 No Physical Exam Physical Exam Constitutional: in moderately acute acute distress, non-toxic appearance. [] HENT: Normocephalic, atraumatic, bilateral external ears normal, oropharynx moist, no oral exudates, nose normal. [] Eyes: PERRLA, EOMI, conjunctiva normal, no discharge. [] Neck: Normal range of motion, no tenderness, supple, no stridor. [] Cardiovascular:Heart rate regular rhythm, no murmur [] Lungs & Thorax: Bilateral breath sounds equal apexes on auscultation [] Abdomen: Bowel sounds normal, soft, right upper quadrant and epigastric tenderness, liver edge., no pulsatile masses. [] Rebound to right upper quadrant and epigastric area. Patient declines rectal exam this time. Old surgery scar- Skin: Warm, dry, no erythema, no rash. [] Back: No tenderness, no CVA tenderness. [] Extremities: No tenderness, no cyanosis, no clubbing, ROM intact, no edema. [] No psoas sign. No cording noted. Scars and groin and axillary Neurologic: Alert and oriented X 3, normal motor function, normal sensory fu nction, no focal deficits noted. [] Psychologic: Affect anxious, judgement normal, mood normal. [] Current Patient Data Vital Signs Vital Signs Date Time Temp Pulse Resp B/P (MAP) Pulse Ox O2 Delivery O2 Flow Rate FiO2 05/01/19 02:44 64 18 116/59 (78) 99 Room Air 04/30/19 22:38 99.3 Lab Results Laboratory Tests Test 04/30/19 22:55 04/30/19 23:00 05/01/19 02:10 White Blood Count 11.1 x10^3/uL (4.0-11.0) H Red Blood Count 4.49 x10^6/uL (3.50-5.40) Hemoglobin 13.6 g/dL (12.0-15.5) Hematocrit 41.2 % (36.0-47.0) Mean Corpuscular Volume 92 fL (79-100) Mean Corpuscular Hemoglobin 30 pg (25-35) Mean Corpuscular Hemoglobin Concent 33 g/dL (31-37) Red Cell Distribution Width 13.2 % (11.5-14.5) Platelet Count 294 x10^3/uL (140-400) Neutrophils (%) (Auto) 63 % (31-73) Lymphocytes (%) (Auto) 27 % (24-48) Monocytes (%) (Auto) 6 % (0-9) Eosinophils (%) (Auto) 4 % (0-3) H Basophils (%) (Auto) 1 % (0-3) Neutrophils # (Auto) 6.9 x10^3uL (1.8-7.7) Lymphocytes # (Auto) 2.9 x10^3/uL (1.0-4.8) Monocytes # (Auto) 0.7 x10^3/uL (0.0-1.1) Eosinophils # (Auto) 0.4 x10^3/uL (0.0-0.7) Basophils # (Auto) 0.1 x10^3/uL (0.0-0.2) Prothrombin Time 9.7 SEC (9.4-11.4) Prothrombin Time INR 0.9 (0.9-1.1) PTT 23 SEC (23-33) D-Dimer (Rajni) 0.51 mg/L (0.00-0.50) H Sodium Level 139 mmol/L (136-145) Potassium Level 3.5 mmol/L (3.5-5.1) Chloride Level 103 mmol/L (98-107) Carbon Dioxide Level 27 mmol/L (21-32) Anion Gap 9 (6-14) Blood Urea Nitrogen 7 mg/dL (7-20) Creatinine 0.7 mg/dL (0.6-1.0) Estimated GFR (Cockcroft-Gault) 101.1 Glucose Level 142 mg/dL (70-99) H Calcium Level 8.9 mg/dL (8.5-10.1) Magnesium Level 1.8 mg/dL (1.8-2.4) Total Bilirubin 0.2 mg/dL (0.2-1.0) Direct Bilirubin 0.1 mg/dL (0.0-0.2) Aspartate Amino Transferase (AST) 70 U/L (15-37) H Alanine Aminotransferase (ALT) 100 U/L (14-59) H Alkaline Phosphatase 75 U/L (46-116) Creatine Kinase 39 U/L (26-192) Troponin I Quantitative < 0.017 ng/mL (0-0.055) < 0.017 ng/mL (0-0.055) FD-Qky-W-Type Natriuretic Peptide 25 pg/mL (0-124) Total Protein 7.0 g/dL (6.4-8.2) Albumin 3.3 g/dL (3.4-5.0) L Amylase Level 51 U/L (25-115) Lipase 160 U/L (73-393) Serum Test, Qualitative Negative (NEG) Urine Collection Type Unknown Urine Color Straw Urine Clarity Clear Urine pH 6.5 Urine Specific [place] 1.010 Urine Protein Neg (NEG-TRACE) Urine Glucose (UA) Neg mg/dL (NEG) Urine Ketones (Stick) Neg mg/dL (NEG) Urine Blood Neg (NEG) Urine Nitrite Neg (NEG) Urine Bilirubin Neg (NEG) Urine Urobilinogen Dipstick 0.2 mg/dL (0.2 mg/dL) Urine Leukocyte Esterase Neg (NEG) Urine RBC Occ /HPF (0-2) Urine WBC Occ /HPF (0-4) Urine Squamous Epithelial Cells Mod /LPF Urine Bacteria Few /HPF (0-FEW) Urine Opiates Screen Neg (NEG) Urine Methadone Screen Neg (NEG) Urine Barbiturates Neg (NEG) Urine Phencyclidine Screen Neg (NEG) Urine Amphetamine/Methamphetamine Neg (NEG) Urine Benzodiazepines Screen Neg (NEG) Urine Cocaine Screen Neg (NEG) Urine Cannabinoids Screen Neg (NEG) Urine Ethyl Alcohol Neg (NEG) EKG EKG I interpretation EKG shows sinus rhythm at 69 bpm. There are no findings acute STEMI with contralateral changes. There is movement artifact in lead 1 and 2 Radiology/Procedures Radiology/Procedures My interpretation of chest x-ray daily had shows no acute cardiopulmonary findings. No free air in the diaphragm. Abdomen portion shows a nonspecific bowel gas pattern.[] There is stool in the colon.[address] [address] IMAGING REPORT Signed PATIENT: PENELOPE VILLA V ACCOUNT: [id number] : 1990 LOCATION: ER AGE: 28 SEX: F EXAM STATUS: REG ER ORD. PHYSICIAN: DEXTER MEZA MD REASON: Omni 300,75ml IV.Omni 240,30ml PO.RUQ abd pain,epigastric pain PROCEDURE: CT ABD PELV W/ORAL&IV CONTRAST EXAM: CT Abdomen and Pelvis with IV contrast CLINICAL HISTORY: Right upper quadrant abdominal pain, epigastric pain. COMPARISON: none TECHNIQUE: Helical CT of the abdomen and pelvis was performed following the administration of intravenous contrast. Axial, coronal and sagittal reformatted images were generated. PQRS compliance statement - One or more of the following individualized dose reduction techniques were utilized for this study: 1. Automated exposure control 2. Adjustment of the mA and/or kV according to patient size 3. Use of iterative reconstruction technique FINDINGS: Lower chest: Lung bases are clear Abdomen and Pelvis: Diffuse hepatic hypoattenuation may be seen with hepatic steatosis. Focal fatty sparing at the gallbladder fossa and falciform ligament. Liver measures 24.4 cm in length. Gallbladder is normal. No biliary ductal dilatation. Spleen is unremarkable. Adrenal glands are normal. Pancreas is unremarkable. Symmetric nephrograms. 2 mm right interpolar renal calculus. No hydronephrosis or hydroureter. Bladder wall thickening with trace associated fat infiltration may be seen with cystitis. No small or large bowel dilatation. No evidence for bowel obstruction. Appendix is normal. No abdominal or pelvic lymphadenopathy. Prominent right lower quadrant mesenteric lymph nodes are seen. No abdominal pelvic ascites. Aorta is normal in caliber. Bones: Osseous structures are unremarkable. IMPRESSION: 1. Hepatic steatosis and hepatomegaly. 2. Right lower quadrant mesenteric lymph nodes are seen, nonspecific but may be seen with mesenteric adenitis. The appendix is normal. 3. Bladder wall thickening and mild fat infiltration is seen with cystitis. 4. Nonobstructing right interpolar renal calculus. No hydronephrosis or hydroureter. Electronically signed by: Matthew Shea MD (05/01/2019 2:03 AM) [facility] DICTATED AND SIGNED BY: MATTHEW SHEA MD DATE: 05/01/19 0203 CC: DEXTER MEZA MD; CESARIO CLARK MD ~ Course & Med Decision Making Course & Med Decision Making Pertinent Labs and Imaging studies reviewed. (See chart for details) Suspect hx consistent with biliary colic. Patient's stay on a clear fluid diet only for the next 2 days. Must allow bowel rest. No solid or milk products. Take Tylenol and ibuprofen for discomfort. Take Zantac and 50 mg twice day. Follow-up primary care. Consider EGD and ultrasound evaluate for biliary colic. Patient return if any concerns. Patient avoid high fat meals. [] Final Impression Final Impression 1. Chest pain 2. Epigastric and right upper quadrant abdomen pain[] 3. Mesenteric adenitis 4. Biliary colic 5. Gastritis 6. Elevated Glucsoe 142 7. Elevate AST, AlT 70/100 8. Very Mild elevation of D-dimer 0.56 9. Hx. of Hidradenitis Suppurativa Dragon Disclaimer Dragon Disclaimer This electronic medical record was generated, in whole or in part, using a voice recognition dictation system. Discharge Summary Visit Information Final Diagnosis Problems Medical Problems: (1) Acute mesenteric adenitis Status: Acute (2) Chest pain Status: Acute (3) Mesenteric adenitis Status: Acute (4) Pain in the abdomen Status: Acute Brief Hospital Course Allergies Allergies Coded Allergies Type Severity Reaction Last Updated Verified No Known Drug Allergies 05/31/17 No Vital Signs Vital Signs Date Time Temp Pulse Resp B/P (MAP) Pulse Ox O2 Delivery O2 Flow Rate FiO2 05/01/19 02:44 64 18 116/59 (78) 99 Room Air 04/30/19 22:38 99.3 Lab Results Laboratory Tests Test 04/30/19 22:55 04/30/19 23:00 05/01/19 02:10 White Blood Count 11.1 x10^3/uL (4.0-11.0) Red Blood Count 4.49 x10^6/uL (3.50-5.40) Hemoglobin 13.6 g/dL (12.0-15.5) Hematocrit 41.2 % (36.0-47.0) Mean Corpuscular Volume 92 fL (79-100) Mean Corpuscular Hemoglobin 30 pg (25-35) Mean Corpuscular Hemoglobin Concent 33 g/dL (31-37) Red Cell Distribution Width 13.2 % (11.5-14.5) Platelet Count 294 x10^3/uL (140-400) Neutrophils (%) (Auto) 63 % (31-73) Lymphocytes (%) (Auto) 27 % (24-48) Monocytes (%) (Auto) 6 % (0-9) Eosinophils (%) (Auto) 4 % (0-3) Basophils (%) (Auto) 1 % (0-3) Neutrophils # (Auto) 6.9 x10^3uL (1.8-7.7) Lymphocytes # (Auto) 2.9 x10^3/uL (1.0-4.8) Monocytes # (Auto) 0.7 x10^3/uL (0.0-1.1) Eosinophils # (Auto) 0.4 x10^3/uL (0.0-0.7) Basophils # (Auto) 0.1 x10^3/uL (0.0-0.2) Prothrombin Time 9.7 SEC (9.4-11.4) Prothromb Time International Ratio 0.9 (0.9-1.1) Activated Partial Thromboplast Time 23 SEC (23-33) D-Dimer (Rajni) 0.51 mg/L (0.00-0.50) Sodium Level 139 mmol/L (136-145) Potassium Level 3.5 mmol/L (3.5-5.1) Chloride Level 103 mmol/L (98-107) Carbon Dioxide Level 27 mmol/L (21-32) Anion Gap 9 (6-14) Blood Urea Nitrogen 7 mg/dL (7-20) Creatinine 0.7 mg/dL (0.6-1.0) Estimated GFR (Cockcroft-Gault) 101.1 Glucose Level 142 mg/dL (70-99) Calcium Level 8.9 mg/dL (8.5-10.1) Magnesium Level 1.8 mg/dL (1.8-2.4) Total Bilirubin 0.2 mg/dL (0.2-1.0) Direct Bilirubin 0.1 mg/dL (0.0-0.2) Aspartate Amino Transf (AST/SGOT) 70 U/L (15-37) Alanine Aminotransferase (ALT/SGPT) 100 U/L (14-59) Alkaline Phosphatase 75 U/L (46-116) Creatine Kinase 39 U/L (26-192) Troponin I Quantitative < 0.017 ng/mL (0-0.055) < 0.017 ng/mL (0-0.055) WH-Gge-Y-Type Natriuretic Peptide 25 pg/mL (0-124) Total Protein 7.0 g/dL (6.4-8.2) Albumin 3.3 g/dL (3.4-5.0) Amylase Level 51 U/L (25-115) Lipase 160 U/L (73-393) Serum Test, Qualitative Negative (NEG) Urine Collection Type Unknown Urine Color Straw Urine Clarity Clear Urine pH 6.5 Urine Specific [place] 1.010 Urine Protein Neg (NEG-TRACE) Urine Glucose (UA) Neg mg/dL (NEG) Urine Ketones (Stick) Neg mg/dL (NEG) Urine Blood Neg (NEG) Urine Nitrite Neg (NEG) Urine Bilirubin Neg (NEG) Urine Urobilinogen Dipstick 0.2 mg/dL (0.2 mg/dL) Urine Leukocyte Esterase Neg (NEG) Urine RBC Occ /HPF (0-2) Urine WBC Occ /HPF (0-4) Urine Squamous Epithelial Cells Mod /LPF Urine Bacteria Few /HPF (0-FEW) Urine Opiates Screen Neg (NEG) Urine Methadone Screen Neg (NEG) Urine Barbiturates Neg (NEG) Urine Phencyclidine Screen Neg (NEG) Urine Amphetamine/Methamphetamine Neg (NEG) Urine Benzodiazepines Screen Neg (NEG) Urine Cocaine Screen Neg (NEG) Urine Cannabinoids Screen Neg (NEG) Urine Ethyl Alcohol Neg (NEG) Brief Hospital Course Ms. Villa is a 28 old female who presented with suspect biliary colic. Discharge Information Condition at Discharge: Improved, Stable Disposition/Orders: D/C to Home Dischare Medications Current Medications Aspirin (Children'S Aspirin) 324 mg 1X ONCE PO Last administered on 04/30/19at 23:10; Admin Dose 324 MG; Start 04/30/19 at 23:00; Stop 04/30/19 at 23:01; Status DC Lactated Ringer's 1,000 ml @ 1,000 mls/hr Q1H IV Last administered on 04/30/19at 23:11; Admin Dose 1,000 MLS/HR; Start 04/30/19 at 23:00; Stop 04/30/19 at 23:59; Status DC Magnesium Hydroxide (Milk Of Magnesia) 2,400 mg 1X ONCE PO Last administered on 04/30/19at 23:10; Admin Dose 2,400 MG; Start 04/30/19 at 23:15; Stop 04/30/19 at 23:48; Status DC Iohexol (Omnipaque 240 Mg/ml) 30 ml 1X ONCE PO Last administered on 05/01/19at 01:33; Admin Dose 30 ML; Start 04/30/19 at 23:55; Stop 04/30/19 at 23:56; Sta tus DC Iohexol (Omnipaque 300 Mg/ml) 75 ml 1X ONCE IV Last administered on 05/01/19at 01:34; Admin Dose 75 ML; Start 04/30/19 at 23:55; Stop 04/30/19 at 23:56; Status DC Info (Do NOT chart on this entry -- for MONITORING) 1 each PRN DAILY PRN MC SEE COMMENTS; Start 04/30/19 at 23:55; Stop 05/02/19 at 23:54 Ketorolac Tromethamine (Toradol 30mg Vial) 30 mg 1X ONCE IV Last administered on 05/01/19at 02:38; Admin Dose 30 MG; Start 05/01/19 at 02:30; Stop 05/01/19 at 02:31; Status UNV Acetaminophen (Tylenol) 1,000 mg 1X ONCE PO Last administered on 05/01/19at 02:38; Admin Dose 1,000 MG; Start 05/01/19 at 02:30; Stop 05/01/19 at 02:31; Status UNV Sucralfate (Carafate) 1 gm 1X ONCE PO Last administered on 05/01/19at 02:38; Admin Dose 1 GM; Start 05/01/19 at 02:30; Stop 05/01/19 at 02:31; Status UNV Ceftriaxone Sodium 1 gm/ Sodium Chloride 50 ml @ 100 mls/hr 1X ONCE IV Last administered on 05/01/19at 02:38; Admin Dose 100 MLS/HR; Start 05/01/19 at 02:30; Stop 05/01/19 at 02:59; Status UNV Ceftriaxone Sodium (Rocephin) 1 gm STK-MED ONCE .ROUTE ; Start 05/01/19 at 02:32; Stop 05/01/19 at 02:33; Status DC Sodium Chloride 50 ml @ As Directed STK-MED ONCE .ROUTE ; Start 05/01/19 at 02:34; Stop 05/01/19 at 02:35; Status DC Active Scripts Active Zantac (Ranitidine Hcl) 150 Mg Tablet 150 Mg PO BID Zofran (Ondansetron Hcl) 8 Mg Tablet 8 Mg PO QIDPRN PRN Keflex (Cephalexin) 500 Mg Capsule 500 Mg PO TID 7 Days Benadryl (Diphenhydramine Hcl) 25 Mg Capsule 50 Mg PO QIDPRN PRN Milk Of Magnesia (Magnesium Hydroxide) 2,400 Mg/10 Ml Oral.susp 2,400 Mg PO DAILY IF TAKING PAIN Acetaminophen 500 Mg Tablet 1,000 Mg PO QIDPRN PRN Hydrocodone-Ibuprofen 7.5-200 (Hydrocodone/Ibuprofen) 1 Each Tablet 1 Tab PO PRN Q6HRS PRN Zithromax (Azithromycin) 250 Mg Tablet 250 Mg PO DAILY 5 Days Prednisone 50 Mg Tablet 50 Mg PO DAILY 5 Days Naprosyn (Naproxen) 500 Mg Tablet 500 Mg PO BID Cyclobenzaprine Hcl 10 Mg Tablet 1 Tab PO TID Elizabeth Disclaimer This chart was dictated in whole or in part using Voice Recognition software in a busy, high-work load, and often noisy Emergency Department environment. It may contain unintended and wholly unrecognized errors or omissions. DEXTER MEZA MD Apr 30, 2019 22:43
[2019-04-30] MEDS ORDERED: IV RINGERS SOLUTION,LACTATED 1,000 ML IV SCH (23:00)
[2019-04-30] MEDS ORDERED: ASPIRIN 81 MG TAB.CHEW PO ONE (23:00)
[2019-04-30 23:15] LABS: BASO # 0.1 x10^3/uL (0.0-0.2); BASO % 1 % (0-3); EOS # 0.4 x10^3/uL (0.0-0.7); EOS % 4 % (0-3); HEMATOCRIT 41.2 % (36.0-47.0); HEMOGLOBIN 13.6 g/dL (12.0-15.5); LYMPH # 2.9 x10^3/uL (1.0-4.8); LYMPH % 27 % (24-48); MEAN CORPUSCULAR HEMOGLOBIN 30 pg (25-35); MEAN CORPUSCULAR HGB CONC 33 g/dL (31-37); MEAN CORPUSCULAR VOLUME 92 fL (79-100); MONO # 0.7 x10^3/uL (0.0-1.1); MONO % 6 % (0-9); NEUT # 6.9 x10^3uL (1.8-7.7); NEUT % 63 % (31-73); PLATELET COUNT 294 x10^3/uL (140-400); RED BLOOD COUNT 4.49 x10^6/uL (3.50-5.40); RED CELL DISTRIBUTION WIDTH 13.2 % (11.5-14.5); WHITE BLOOD COUNT 11.1 x10^3/uL (4.0-11.0)
[2019-04-30] MEDS ORDERED: MAGNESIUM HYDROXIDE 2,400 MG/30 ML ORAL.SUSP. PO ONE (23:15)
[2019-04-30 23:25] LABS: AMPHETAMINE/METHAMPHETAMINE NEG (NEG); BARBITURATES NEG (NEG); BENZODIAZEPINES NEG (NEG); CANNABINOIDS NEG (NEG); COCAINE NEG (NEG); METHADONE NEG (NEG); OPIATES NEG (NEG); PHENCYCLIDINE NEG (NEG)
[2019-04-30 23:27] LABS: PREG TEST PT QUAL NEGATIVE (NEG)
[2019-04-30 23:32] LABS: ALBUMIN 3.3 g/dL (3.4-5.0); CALCIUM 8.9 mg/dL (8.5-10.1); CREATININE 0.7 mg/dL (0.6-1.0); DIRECT BILIRUBIN 0.1 mg/dL (0.0-0.2); GFR 101.1; MAGNESIUM 1.8 mg/dL (1.8-2.4); POTASSIUM 3.5 mmol/L (3.5-5.1); TOTAL BILIRUBIN 0.2 mg/dL (0.2-1.0)
[2019-04-30 23:33] LABS: BILIRUBIN,URINE NEG (NEG); CLARITY,URINE CLEAR; COLOR,URINE STRAW; GLUCOSE,URINE NEG (NEG)
[2019-04-30 23:34] LABS: BACTERIA,URINE FEW /HPF (0-FEW); NITRITE,URINE NEG (NEG); RBC,URINE OCC /HPF (0-2); SQUAMOUS EPITHELIAL CELL,UR MOD /LPF; UROBILINOGEN,URINE 0.2 mg/dL (0.2 mg/dL); WBC,URINE OCC /HPF (0-4)
[2019-04-30] MEDS ORDERED: IOHEXOL 240 MG/ML 50ML VIAL. PO ONE (23:55)
[2019-04-30] MEDS ORDERED: CONTRAST GIVEN MC PRN (23:55)
[2019-04-30] MEDS ORDERED: IOHEXOL 300 MG/ML 75 ML VIAL. IV ONE (23:55)
--- NOTE | 2019-05-01 02:06 | RAD ---
EXAM: CT Abdomen and Pelvis with IV contrast CLINICAL HISTORY: Right upper quadrant abdominal pain, epigastric pain. COMPARISON: none TECHNIQUE: Helical CT of the abdomen and pelvis was performed following the administration of intravenous contrast. Axial, coronal and sagittal reformatted images were generated. PQRS compliance statement - One or more of the following individualized dose reduction techniques were utilized for this study: 1. Automated exposure control 2. Adjustment of the mA and/or kV according to patient size 3. Use of iterative reconstruction technique FINDINGS: Lower chest: Lung bases are clear Abdomen and Pelvis: Diffuse hepatic hypoattenuation may be seen with hepatic steatosis. Focal fatty sparing at the gallbladder fossa and falciform ligament. Liver measures 24.4 cm in length. Gallbladder is normal. No biliary ductal dilatation. Spleen is unremarkable. Adrenal glands are normal. Pancreas is unremarkable. Symmetric nephrograms. 2 mm right interpolar renal calculus. No hydronephrosis or hydroureter. Bladder wall thickening with trace associated fat infiltration may be seen with cystitis. No small or large bowel dilatation. No evidence for bowel obstruction. Appendix is normal. No abdominal or pelvic lymphadenopathy. Prominent right lower quadrant mesenteric lymph nodes are seen. No abdominal pelvic ascites. Aorta is normal in caliber. Bones: Osseous structures are unremarkable. IMPRESSION: 1. Hepatic steatosis and hepatomegaly. 2. Right lower quadrant mesenteric lymph nodes are seen, nonspecific but may be seen with mesenteric adenitis. The appendix is normal. 3. Bladder wall thickening and mild fat infiltration is seen with cystitis. 4. Nonobstructing right interpolar renal calculus. No hydronephrosis or hydroureter. Electronically signed by: Matthew Manuel MD (05/01/2019 2:03 AM) [email or web address]
[2019-05-01] MEDS ORDERED: ONDA8TAB9 PO (02:26)
[2019-05-01] MEDS ORDERED: RANI-376 PO (02:26)
[2019-05-01] MEDS ORDERED: CEPH-264 PO (02:26)
[2019-05-01] MEDS ORDERED: SUCRALFATE 1 GM TABLET. PO ONE (02:30)
[2019-05-01] MEDS ORDERED: ACETAMINOPHEN 500 MG TABLET PO ONE (02:30)
[2019-05-01] MEDS ORDERED: KETOROLAC 30 MG/ML VIAL. IV ONE (02:30)
[2019-05-01] MEDS ORDERED: cefTRIAXone SODIUM 1 GM VIAL ONE (02:32)
[2019-05-01] MEDS ORDERED: IV NORMAL SALINE 50ML 50 ML ONE (02:34)
[2019-05-01 04:00] VITALS: BP 118/61
--- NOTE | 2019-05-01 06:28 | EKG ---
[address] [address] Test Date: 2019-04-30 Test Time: 22:50:38 Pat Name: PENELOPE NEAL Department: Room: Gender: F Share Holder: : 1990 Requested By: DEXTER MEZA Order Number: [id number] Reading MD: Measurements Intervals [place] Rate: 69 P: 0 DC: 120 QRS: 47 QRSD: 96 T: 13 QT: 380 QTc: 409 Interpretive Statements SINUS RHYTHM NO SPECIFIC ECG ABNORMALITIES RI6.01 No previous ECG available for comparison
--- NOTE | 2019-05-01 06:29 | EKG ---
[address] [address] Test Date: 2019-05-01 Test Time: 02:08:00 Pat Name: PENELOPE NEAL Department: Room: Gender: F [employer] Furnace Tender: EMANI : 1990 Requested By: DEXTER MEZA Order Number: [id number] Reading MD: Measurements Intervals [place] Rate: 66 P: 0 UT: 128 QRS: 47 QRSD: 102 T: 19 QT: 408 QTc: 429 Interpretive Statements SINUS RHYTHM QRS(T) CONTOUR ABNORMALITY CONSIDER INFERIOR MYOCARDIAL DAMAGE POSSIBLY ABNORMAL ECG RI6.01 No previous ECG available for comparison
--- NOTE | 2019-05-01 07:56 | RAD ---
2 views chest and supine and upright views of the abdomen Indication: Abdomen and chest Pain Date of service: 04/30/2019 .Comparison: None available Procedure: PA and lateral view chest and upright and supine abdomen views are obtained. Findings: PA and lateral view chest: Cardiac size and pulmonary vessels are normal. Pneumonia, pneumothorax or pleural effusion are not present. Bones are normal Supine and upright view Abdomen: No evidence of free air is present. Gas pattern is normal . Impression: Normal Chest . Normal abdomen without obstruction, ileus or free air . Electronically signed by: Sri Sanchez MD (05/01/2019 7:53 AM) [facility]
[2019-05-01 13:07] LABS: HDLC 14 mg/dL (40-60); THYROID STIM HORMONE (TSH) 2.754 uIU/mL (0.358-3.740); TRIGLYCERIDES 575 mg/dL (0-150); VLDLC 115 mg/dL (0-40)
== END 2019-05-01 04:00 | disposition home or self-care (01) ==
LOC: ER 22:38
DX: I88.0 Nonspecific mesenteric lymphadenitis (principal); K29.70 Gastritis, unspecified, without bleeding; K80.50 Calculus of bile duct without cholangitis or cholecystitis without obstruction; R07.2 Precordial pain; R73.02 Impaired glucose tolerance (oral); R79.1 Abnormal coagulation profile; R94.5 Abnormal results of liver function studies
CPT/HCPCS: 36415; 71046; 74019; 74177; 80048; 80061; 80076; 80307; 81001; 82150; 82550; 83690; 83735; 83880; 84443; 84484; 84703; 85025; 85379; 85610; 85730; 93005; 96361; 96365; 96375; 99285; J0696; J1885; J7120; Q9966; Q9967